=== PATIENT | female | born 1940 | race Native Hawaiian/Other Pacific Islander ===

== ENCOUNTER 2017-04-21 12:03 | Outpatient (CLI) | payer OTHER | END 2017-04-21 19:14 | disposition home or self-care (01) | LOC: LAB 12:03 | DX: K74.69 Other cirrhosis of liver (principal) | CPT/HCPCS: 82140 ==

== ENCOUNTER 2017-05-01 10:59 | Outpatient (CLI) | payer OTHER | END 2017-05-01 19:23 | disposition home or self-care (01) | LOC: LAB 10:59 | DX: K74.69 Other cirrhosis of liver (principal) | CPT/HCPCS: 82140 ==

== ENCOUNTER 2017-05-29 15:20 | Outpatient (CLI) | payer OTHER | END 2017-05-29 19:00 | disposition home or self-care (01) | LOC: LAB 15:20 | DX: K74.69 Other cirrhosis of liver (principal) | CPT/HCPCS: 82140 ==

== ENCOUNTER 2017-06-13 14:37 | Outpatient (CLI) | payer OTHER | END 2017-06-13 15:40 | disposition home or self-care (01) | LOC: LAB 14:37 | DX: I10 Essential (primary) hypertension (principal); N39.0 Urinary tract infection, site not specified; K74.69 Other cirrhosis of liver | CPT/HCPCS: 87088 ==